=== PATIENT | male | born 1950 | race Caucasian/White ===

== ENCOUNTER 2020-03-21 14:04 | Observation (INO) | payer MEDICARE, OTHER ==
[~2020-03-21] VITALS: Ht 185.4 cm; Wt 110.0 kg
--- NOTE | 2020-03-21 14:15 | NUR ---
pt BIB ambulance form [facility] for evaluation of possible N/O A-fib after an episode of SOB today. pt has no hx of arrythmia. pt reports that he became SOB while preparing to go skiing today and reports that he was already tired from skiing all day yesterday. pt reports that when he sat down, the SOB resolved. pt denies CP and denies palpitations. pink warm and dry per report, pt had mildly elevated troponin [employer] and was sent here for further workup no family at bedside
--- NOTE | 2020-03-21 14:30 | NUR ---
no changes. pt is sitting up on gurney in position of comfort. no apparent distress. no c/o at this time. EKG has been to bedside. Dr. Tobias has been to bedside for eval no family at bedside
--- NOTE | 2020-03-21 14:52 | NUR ---
hospitalist at bedside for eval
--- NOTE | 2020-03-21 15:39 | NUR ---
no changes. pt resting in position of comfoort. no c/o at this time. SO at bedside admit orders have been received with bed assignment. attempting to call report
--- NOTE | 2020-03-21 15:46 | NUR ---
lab at bedside to draw report to Sharon THORNTON
[2020-03-21] MEDS ORDERED: CYCLOBENZAPRINE 10 MG TABLET PO PRN (16:00)
[2020-03-21] MEDS ORDERED: NITROGLYCERIN 0.4 MG/SPRAY SL PRN (16:00)
[2020-03-21] MEDS ORDERED: ONDANSETRON 2MG/ML, 2ML IVPush PRN (16:00)
[2020-03-21] MEDS ORDERED: HYDROcodone/APAP 5/325 TABLET PO PRN (16:00)
[2020-03-21] MEDS ORDERED: ACETAMINOPHEN 325 MG TABLET PO PRN (16:00)
[2020-03-21] MEDS ORDERED: DOCUSATE 100 MG CAPSULE PO PRN (16:00)
[2020-03-21] MEDS ORDERED: morphine SULFATE 10 MG/ML, 1ML IVPush PRN (16:00)
[2020-03-21] MEDS ORDERED: LABETALOL 5MG/ML, 20ML IVPush PRN (16:00)
[2020-03-21] MEDS ORDERED: ZOLPIDEM 5MG TABLET PO PRN (16:00)
[2020-03-21] MEDS ORDERED: GUAIFENESIN/COD200MG-20MG/10ML LIQUID PO PRN (16:00)
[2020-03-21] MEDS ORDERED: ENALAPRILAT 1.25 MG/ML, 2ML IVPush PRN (16:00)
[2020-03-21] MEDS ORDERED: NITROGLYCERIN 0.4 MG BOTTLE (25 TABS) SL PRN (16:00)
[2020-03-21 16:17] LABS: TROPONIN I 0.313 ng/mL (0.000-0.045)
[2020-03-21 16:36] VITALS: BP 130/61
[2020-03-21 16:56] VITALS: BP 130/61
[2020-03-21] MEDS: ENOXAPARIN 40 MG/0.4 ML SQ SCH (17:22)
[2020-03-21 19:30] VITALS: BP 108/68
[2020-03-21 22:36] LABS: TROPONIN I 0.188 ng/mL (0.000-0.045)
[2020-03-22 03:00] VITALS: BP 100/66
[2020-03-22 05:12] LABS: BASOPHILS % (AUTO) 1 % (0-1); EOSINOPHILS % (AUTO) 8 % (1-7); LYMPHOCYTES % (AUTO) 28 % (22-44); MEAN CORPUSCULAR HEMOGLOBIN 30.5 pg (27.5-34.5); MEAN CORPUSCULAR HGB CONC 34.3 g/dL (33.2-36.2); MEAN PLATELET VOLUME 7.2 fL (7.4-10.4); MONOCYTES % (AUTO) 14 % (2-9); NEUTROPHILS % (AUTO) 49 % (42-75); PLATELET COUNT 292 x10^3/uL (130-400); RED BLOOD COUNT 5.22 x10^6/uL (4.38-5.82); RED CELL DISTRIBUTION WIDTH 14.1 % (9.4-14.8)
[2020-03-22 05:19] LABS: MD NO
[2020-03-22 05:27] LABS: ANION GAP 5 mmol/L (5-15); CALCIUM 9.1 mg/dL (8.5-10.1); CHLORIDE 107 mmol/L (98-107)
[2020-03-22 05:28] LABS: CREATININE 1.22 mg/dL (0.7-1.3)
[2020-03-22] MEDS ORDERED: REGADENOSON 0.4 MG/5 ML SYRINGE ONE (09:38)
[2020-03-22 10:49] VITALS: BP 107/74
[2020-03-22 13:38] VITALS: BP 102/61
[2020-03-22] MEDS: ENOXAPARIN 40 MG/0.4 ML SQ SCH (16:00)
[2020-03-22] MEDS ORDERED: METO25TA91 PO (16:52)
== END 2020-03-22 17:52 | disposition home or self-care (01) ==
LOC: ED 14:31 → EDIP 14:56 → INTOOBSV 14:56 → 5SO 16:17 → UNDODISOB 03-22 17:21
PROVIDERS: ADMIT Family Medicine; ATTEND Internal Medicine
DX: I48.20 Chronic atrial fibrillation, unspecified (principal); J44.9 Chronic obstructive pulmonary disease, unspecified; I21.A1 Myocardial infarction type 2; I48.0 Paroxysmal atrial fibrillation; E86.0 Dehydration; N17.9 Acute kidney failure, unspecified; G47.30 Sleep apnea, unspecified; R06.00 Dyspnea, unspecified; E66.9 Obesity, unspecified; Z68.31 Body mass index [BMI] 31.0-31.9, adult; Z87.891 Personal history of nicotine dependence; Z79.899 Other long term (current) drug therapy
CPT/HCPCS: 36415; 78452; 80048; 84443; 84484; 85025; 85379; 93005; 93017; 93306; 96372; 99284; A9502; G0378; J1650; J2785